=== PATIENT | male | born 1990 | race Caucasian/White ===

== ENCOUNTER 2018-03-09 03:36 | Emergency (ER) | payer OTHER ==
[2018-03-09] MEDS ORDERED: LIDOCAINE HCL 1%, 10 MG/ML (50 mL VIAL) SQ ONE (04:07)
--- NOTE | 2018-03-09 04:07 | PDOC ---
History of Present Illness - General Stated Complaint: i THINK I BROKE MY KNUCKLES Time Seen by Provider: 03/09/18 03:38 History Source: Patient Exam Limitations: No Limitations - History of Present Illness Occurred: reports: just prior to arrival Severity: reports: moderate Upper Extremity Pain Location: right: hand Method of Injury: reports: direct blow Modifying Factors: improves with: None Extremity Pain Location - Extremity Pain Location Extremity Pain Locations: right: hand Past History - Past Medical History Allergies/Adverse Reactions: Allergies Allergy/AdvReac Type Severity Reaction Status Date / Time No Known Allergies Allergy Verified 03/09/18 04:12 Home Medications: Ambulatory Orders NK [No Known Home Medication] 03/09/18 Comment:: 03/09/18 04:47 denies Review of Systems - Review of Systems All Other Systems: Reviewed and Negative *Physical Exam - Physical Exam General Appearance: Yes: Nourished HEENT: positive: Normal Voice Respiratory/Chest: positive: Normal Breath Sounds Cardiovascular: positive: Regular Rhythm Lymphatic: negative: Adenopathy Musculoskeletal: positive: Other (r hand with dorsal deformity and tenderness distal to the wrist) Extremity: positive: Normal Capillary Refill Neurologic: positive: Other (sensation intact to light touch throughout fingers) Progress Note - Progress Note Progress Note: procedure: reduction of metacarpal dislocation. intact cap refill post procedure procedure. volar splint intact cap refill post procedure Medical Decision Making - Medical Decision Making 03/09/18 05:55 metacarpal dislocation reduced in ED splint, sling instructed re signs of compartment syndrome ortho fu Sunday *DC/Admit/Observation/Transfer Diagnosis at time of Disposition: Dislocation involving metacarpal, open - Discharge Dispostion Disposition: HOME - Referrals Referrals: Nicholas Dumont MD [Staff Physician] - Call tomorrow - Patient Instructions Printed Discharge Instructions: How to Use a Sling - Post Discharge Activity
[2018-03-09] MEDS ORDERED: LIDOCAINE HCL 1%, 10 MG/ML (20ML VIAL) ONE (04:09)
[2018-03-09] MEDS ORDERED: HYDROmorphone HCL CARPU-JECT 2 MG/1 ML DISP.SYRIN ONE (04:17)
[2018-03-09] MEDS ORDERED: MIDAZOLAM HCL 2 MG/2 ML SINGLE DOSE VIAL ONE (04:27)
[2018-03-09 04:52] VITALS: TEMP 99; BMI 28.8
[2018-03-09] MEDS ORDERED: HYDROmorphone HCL CARPU-JECT 1 MG/1 ML DISP.SYRIN IVPUSH ONE (04:52)
[2018-03-09] MEDS ORDERED: MIDAZOLAM HCL 2 MG/2 ML SINGLE DOSE VIAL IVPUSH ONE (04:53)
[2018-03-09 07:11] VITALS: BP 122/68; PULSE 72
== END 2018-03-09 06:00 | disposition home or self-care (01) ==
LOC: FER 03:36
PROC: 0RS Upper Joints, Reposition (ICD-10-PCS; principal; 2018-03-09)
PROC: 0RS Upper Joints, Reposition (ICD-10-PCS; 2018-03-09)
PROC: 0RS Upper Joints, Reposition (ICD-10-PCS; 2018-03-09)
PROC: 3E033NZ Introduction of Analgesics, Hypnotics, Sedatives into Peripheral Vein, Percutaneous Approach (ICD-10-PCS; 2018-03-09)
DX: S63.266A Dislocation of metacarpophalangeal joint of right little finger, initial encounter (principal); S63.262A Dislocation of metacarpophalangeal joint of right middle finger, initial encounter; S63.264A Dislocation of metacarpophalangeal joint of right ring finger, initial encounter; W22.8XXA Striking against or struck by other objects, initial encounter; Y93.9 Activity, unspecified; Y92.9 Unspecified place or not applicable
CPT/HCPCS: 73110-TC-RT-FY; 73130-TC-RT-FY; 99281-25

== ENCOUNTER 2018-03-22 14:00 | Emergency (ER) | payer OTHER ==
--- NOTE | 2018-03-22 14:01 | PDOC ---
History of Present Illness - General Chief Complaint: Injury Stated Complaint: RIGHT WRIST XRAY F/U History Source: Patient Exam Limitations: No Limitations - History of Present Illness Initial Comments: 03/22/18 15:17 This patient is a right-hand dominant 27-year-old male who presents emergency Department for repeat x-ray. Briefly approximately 2 weeks ago he punched a box. Presented to the emergency department where he was found to have third fourth and fifth metacarpal dislocations. He status post closed reduction and splinting. Patient was told to follow up with his sports DrHaseeb which he did. His course had been trying to arrange an outpatient x-ray, will was unsuccessful in doing so because patient's insurance is not accepted here He was seen by sports doctor today and was told to go to the emergency department for follow-up x-ray Patient has not sustained any new injuries He denies pain, numbness, tingling, motor deficits. PMH: Denies PSH: Denies Medication: Denies GENERAL/CONSTITUTIONAL: No: fever, chills, weakness, loss of appetite. MUSCULOSKELETAL: Yes: right hand pain SKIN: No: Right finger bruising NEUROLOGIC: No: numbness, paresthesias, weakness GENERAL: The patient is in no acute distress. EXTREMITIES: Right short arm splint, hand swollen, nml range of motion, sensation in tact, cap refill <2sec, NEUROLOGICAL: Cranial nerves II through XII grossly intact. Normal speech. No focal neurological deficits. MUSCULOSKELETAL: see above SKIN: faint bruising Past History - Past Medical History Allergies/Adverse Reactions: Allergies Allergy/AdvReac Type Severity Reaction Status Date / Time No Known Allergies Allergy Verified 03/22/18 14:01 Home Medications: Ambulatory Orders NK [No Known Home Medication] 03/09/18 COPD: No - Suicide/Smoking/Psychosocial Hx Smoking History: Never smoked Hx Alcohol Use: No Drug/Substance Use Hx: No Substance Use Type: None Medical Decision Making - Medical Decision Making 03/22/18 15:19 Xray ordered No signs of compartment syndrome Awaiting x ray results 03/22/18 18:30 Xray read as unchanged from xray s/p reduction Will discharge to home Pt can follow up with sports management physician Clinical Impression: metacarpal dislocation, repeat presentation *DC/Admit/Observation/Transfer Diagnosis at time of Disposition: Dislocation of metacarpal joint - Discharge Dispostion Disposition: HOME Condition at time of disposition: Stable Admit: No - Referrals - Patient Instructions Printed Discharge Instructions: DI for Hand Injury Additional Instructions: Please follow up with your orthopedist/sports medicine physician - Post Discharge Activity
[2018-03-22 14:12] VITALS: BP 134/96; PULSE 74; TEMP 98; BMI 28.8
== END 2018-03-22 16:33 | disposition home or self-care (01) ==
LOC: FER 14:00
DX: S63.269D Dislocation of metacarpophalangeal joint of unspecified finger, subsequent encounter (principal); X58.XXXD Exposure to other specified factors, subsequent encounter
CPT/HCPCS: 73110-TC-RT-FY; 73130-TC-RT-FY; 99281-25